=== PATIENT | male | born 1960 | race Hispanic/Latino ===

== ENCOUNTER 2017-11-06 16:29 | Emergency (ER) | payer MEDICARE ==
[2017-11-06] MEDS ORDERED: Sodium Chloride 0.9% 1,000 ML IV STA ×2 (16:58→20:18)
--- NOTE | 2017-11-06 17:31 | ED PDOC ---
Arrival/HPI - General Chief Complaint: Palpitations Time Seen by Provider: 11/06/17 16:36 Historian: Patient - History of Present Illness Narrative History of Present Illness (Text): 11/06/17 17:05 A 57 year old male, whose past medical history includes multiple sclerosis and hypertension, presents to the emergency department complaining of fluttering in chest x 3 days, 10x per day. Patient has had stress test performed 08/09/2017, which showed essentially normal SPECT myocardial perfusion study; fixed inferior defect is most likely due to diaphragmatic attenuation; normal gated wall motion and thickening of the left ventricle. Patient denies any associated shortness of breath, dyspnea on exertion, diaphoresis, chest pain, nausea, vomiting, or any other complaints. Patient visit on 11/03/2017 to [place] [facility] for similar complaint, where Troponin and Chest X-ray negative, with positive diagnosis with dehydration. PMD: Dr. Unruly Young Past Medical History - Provider Review Nursing Documentation Reviewed: Yes - Infectious Disease Hx of Infectious Diseases: None - Cardiac Hx Cardiac Disorders: Yes Hx Hypertension: Yes - Pulmonary Hx Respiratory Disorders: No - Neurological Hx Neurological Disorder: Yes Hx Multiple Sclerosis: Yes - HEENT Hx HEENT Disorder: No - Renal Hx Renal Disorder: No - Endocrine/Metabolic Hx Endocrine Disorders: No - Hematological/Oncological Hx Blood Disorders: No - Integumentary Hx Dermatological Disorder: No - Musculoskeletal/Rheumatological Hx Musculoskeletal Disorders: No Other/Comment: multiple sclerosis - Gastrointestinal Hx Gastrointestinal Disorders: No - Genitourinary/Gynecological Hx Genitourinary Disorders: No - Psychiatric Hx Psychophysiologic Disorder: No Hx Substance Use: No - Surgical History Other/Comment: spinal fusion - Anesthesia Hx Anesthesia Reactions: No Family/Social History - Physician Review Nursing Documentation Reviewed: Yes Family/Social History: No Known Family HX Smoking Status: Never Smoked Hx Alcohol Use: No Hx Substance Use: No Allergies/Home Meds Allergies/Adverse Reactions: Allergies Penicillins Allergy (Verified 11/06/17 16:50) RASH strawberry Allergy (Verified 11/06/17 16:50) RASH Home Medications: Home Meds Medication Instructions Recorded Confirmed Gabapentin [Neurontin] 300 mg PO QID 09/08/15 11/06/17 Telmisartan/Hydrochlorothiazid 1 tab PO DAILY 09/08/15 11/06/17 [Micardis Hct 25 mg-80 mg] Aspirin [Ecotrin] 81 mg PO DAILY 11/06/17 11/06/17 Baclofen [Lioresal] 10 mg PO TID 11/06/17 11/06/17 Ocrelizumab [Ocrevus] 0 mg IV 11/06/17 Review of Systems - Physician Review All systems were reviewed & negative as marked: Yes - Review of Systems Respiratory: absent: SOB Cardiovascular: absent: Chest Pain (however is experiencing fluttering in chest) , BISWAS Gastrointestinal: absent: Nausea, Vomiting Endocrine: absent: Diaphoresis Physical Exam Vital Signs Reviewed: Yes Vital Signs Temp Pulse Resp BP Pulse Ox 11/06/17 22:01 98.5 F 108 H 16 168/99 H 100 11/06/17 21:30 98.5 F 101 H 15 157/96 H 95 11/06/17 20:30 98.5 F 104 H 18 139/98 H 96 11/06/17 17:34 98.7 F 118 H 18 141/99 H 99 11/06/17 16:42 98.7 F 101 H 20 161/103 H 100 11/06/17 16:38 98.7 F 96 H 20 161/103 H 100 Temperature: Afebrile Blood Pressure: Hypertensive Pulse: Regular Respiratory Rate: Normal Appearance: Positive for: Well-Appearing Pain Distress: None Mental Status: Positive for: Alert and Oriented X 3 - Systems Exam Head: Present: Atraumatic, Normocephalic Pupils: Present: PERRL Extroacular Muscles: Present: EOMI Conjunctiva: Present: Normal Mouth: Present: Moist Mucous Membranes Neck: Present: Normal Range of Motion Respiratory/Chest: Present: Clear to Auscultation, Good Air Exchange. No: Respiratory Distress, Accessory Muscle Use Cardiovascular: Present: Regular Rate and Rhythm, Normal S1, S2. No: Murmurs Abdomen: Present: Normal Bowel Sounds. No: Tenderness, Distention, Peritoneal Signs Back: Present: Normal Inspection Upper Extremity: Present: Normal Inspection. No: Cyanosis, Edema Lower Extremity: Present: Normal Inspection, Other (right foot droop). No: Edema Neurological: Present: GCS=15, CN II-XII Intact, Speech Normal Skin: Present: Warm, Dry, Normal Color. No: Rashes Psychiatric: Present: Alert, Oriented x 3, Normal Insight, Normal Concentration Medical Decision Making ED Course and Treatment: 11/06/17 17:09 Impression: 57 year old male with fluttering in chest. Physical examination is unremarkable. Plan: -- EKG -- Chest X-ray -- Labs -- IV Fluids -- Nasal Cannula O2 -- Urinalysis -- Reassess and disposition Progress Notes: EKG: Ordered, reviewed, and independently interpreted the EKG. Rate : 106 BPM Rhythm : Sinus tachycardia Interpretation : Occasional PVC. Comparison : No previous EKG for comparison. 11/06/2017 18:17 Chest X-ray IMPRESSION: No active disease. No significant interval change compared to the prior examination(s). Dictator: Stefan Macias MD 11/06/17 21:52 repeat EKG : st @ [address]-t- segments, no arrythmogenic intervals , qtc: 461 mS , no more pvc's visualized. 11/06/17 21:57 workup (+) hypomagnesemia.which was repleted, and pt. 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 - Lab Interpretations Lab Results: 11/06/17 17:09 11/06/17 17:09 Lab Results 11/06/17 18:56: Urine Opiates Screen Negative, Urine Methadone Screen Negative, Ur Barbiturates Screen Negative, Ur Phencyclidine Scrn Negative, Ur Amphetamines Screen Negative, U Benzodiazepines Scrn Negative, U Oth Cocaine Metabols Negative, U Cannabinoids Screen Negative 11/06/17 17:52: Urine Color Yellow, Urine Appearance Clear, Urine pH 6.0, Ur Specific [place] 1.020, Urine Protein Negative, Urine Glucose (UA) Negative, Urine Ketones Negative, Urine Blood Trace-lysed H, Urine Nitrate Negative, Urine Bilirubin Negative, Urine Urobilinogen 0.2, Ur Leukocyte Esterase Negative , Urine RBC 0 - 2, Urine WBC Negative 11/06/17 17:15: Magnesium 1.5 L 11/06/17 17:09: Thyroxine (T4) 7.3, T3 Uptake 35.8, TSH 3rd Generation 1.45 11/06/17 17:09: Sodium 137, Potassium 4.5, Chloride 97 L, Carbon Dioxide 27, Anion Gap 17, BUN 27 H, Creatinine 1.0, Est GFR ( Amer) > 60, Est GFR ( Non-Af Amer) > 60, Random Glucose 124 H, Calcium 10.2, Total Bilirubin 0.9, AST 85 H, ALT 59 H, Alkaline Phosphatase 73, Lactate Dehydrogenase 559, Total Creatine Kinase 315 H, CK-MB (CK-2) 6.5 H, CK-MB (CK-2) % 2.1 L, Troponin I < 0.01, Total Protein 8.2, Albumin 4.8, Globulin 3.3, Albumin/Globulin Ratio 1.5 11/06/17 17:09: PT 10.9, INR 0.96, APTT 30.3 11/06/17 17:09: WBC 7.8 D, RBC 4.33, Hgb 13.7 L, Hct 39.9 L, MCV 92.1, MCH 31.6 , MCHC 34.3, RDW 12.5, Plt Count 231, MPV 9.7, Gran % 79.7 H, Lymph % (Auto) 10.5 L, Bibb % (Auto) 9.3 H, Eos % (Auto) 0.4 L, Baso % (Auto) 0.1, Gran # 6.24 , Lymph # (Auto) 0.8 L, Bibb # (Auto) 0.7 H, Eos # (Auto) 0.0, Baso # (Auto) 0.01 I have reviewed the lab results: Yes - RAD Interpretation Radiology Orders: 11/06/17 16:52 CHEST PORTABLE [RAD] Stat - Medication Orders Current Medication Orders: Discontinued Medications Sodium Chloride (Sodium Chloride 0.9%) 1,000 mls @ 999 mls/hr IV .Q1H1M STA Stop: 11/06/17 17:58 Last Admin: 11/06/17 17:42 Dose: 999 mls/hr eMAR Start Stop Document 11/06/17 17:42 OCS (Rec: 11/06/17 17:43 OCS [id number]) Intravenous Solution Start Date 11/06/17 Start Time 17:43 End Date 11/06/17 End time 18:44 Total Infusion Time 61 Sodium Chloride (Sodium Chloride 0.9%) 1,000 mls @ 999 mls/hr IV .Q1H1M STA Stop: 11/06/17 21:18 Last Admin: 11/06/17 20:31 Dose: 999 mls/hr eMAR Start Stop Document 11/06/17 20:31 OCS (Rec: 11/06/17 20:31 OCS [id number]) Intravenous Solution Start Date 11/06/17 Start Time 20:31 End Date 11/06/17 End time 21:32 Total Infusion Time 61 Magnesium Sulfate 2 gm/ Sodium (Chloride) 104 mls @ 102 mls/hr IVPB ONCE ONE Stop: 11/06/17 22:06 Last Admin: 11/06/17 21:16 Dose: 102 mls/hr eMAR Start Stop Document 11/06/17 21:16 OCS (Rec: 11/06/17 21:16 OCS [id number]) Intravenous Solution Start Date 11/06/17 Start Time 21:16 End Date 11/06/17 End time 22:18 Total Infusion Time 62 - Scribe Statement The provider has reviewed the documentation as recorded by the Kinza Still Provider Scribe Attestation: All medical record entries made by the Scribe were at my direction and personally dictated by me. I have reviewed the chart and agree that the record accurately reflects my personal performance of the history, physical exam, medical decision making, and the department course for this patient. I have also personally directed, reviewed, and agree with the discharge instructions and disposition. Disposition/Present on Arrival - Present on Arrival Any Indicators Present on Arrival: No History of DVT/PE: No History of Uncontrolled Diabetes: No Urinary Catheter: No History of Decub. Ulcer: No History Surgical Site Infection Following: None - Disposition Have Diagnosis and Disposition been Completed?: Yes Diagnosis: Palpitations, Hypomagnesemia Disposition: OTHER INSTITUTION Disposition Time: 21:59 Patient Plan: Discharge Condition: IMPROVED Discharge Instructions (ExitCare): Low Magnesium Level (DC), Palpitations (DC) Print Language: FINNISH Additional Instructions: Please eat more dark green vegetables such as spinach/kale/arugala to supplemen tyour magnesium. Drink at least 3 L of water daily to combat dehydration . Please follow up with your rubber tire curer as scheduled , and include infor him of today's visit, as he might choose to conduct a holter monitry evaluation as well to investigate these palpitations if they are continuing. . Referrals: Unruly Young MD [Primary Care Provider] - Follow up with primary Forms: [employer] (Thai)
[2017-11-06 17:32] LABS: BASO # 0.01 K/mm3 (0.0-2.0); BASO % 0.1 % (0.0-3.0); EOS % 0.4 % (1.5-5.0); GRAN # 6.24 (1.4-6.5); GRAN % 79.7 % (50.0-68.0); HEMOGLOBIN 13.7 g/dL (14.0-18.0); LYMPH # 0.8 (1.2-3.4); LYMPH % 10.5 % (22.0-35.0); MEAN CELL VOLUME 92.1 fl (80.0-105.0); MEAN CORPUSCULAR HEMOGLOBIN 31.6 pg (25.0-35.0); MEAN CORPUSCULAR HGB CONC 34.3 g/dl (31.0-37.0); MEAN PLATELET VOLUME 9.7 fl (7.0-11.0); MONO # 0.7 (0.1-0.6); MONO % 9.3 % (1.0-6.0); RBC 4.33 10^6/uL (3.5-6.1); RED CELL DISTRIBUTION WIDTH 12.5 % (11.5-14.5); WHITE BLOOD COUNT 7.8 10^3/ul (4.5-11.0)
[2017-11-06 17:33] LABS: ALB/GLOB RATIO 1.5 (1.1-1.8); ALBUMIN 4.8 g/dL (3.0-4.8); ALT/SGPT 59 U/L (7-56); AST/SGOT 85 U/L (17-59); BLOOD UREA NITROGEN 27 mg/dL (7-21); CALCIUM 10.2 mg/dL (8.4-10.5); GFR AFRICAN-AMERICAN > 60; GFR NON-AFRICAN AMERICAN > 60
[2017-11-06 17:36] LABS: INR 0.96 (0.93-1.08); PARTIAL THROMBOPLASTIN TIME 30.3 Seconds (25.1-36.5); PROTHROMBIN TIME 10.9 SECONDS (9.4-12.5)
[2017-11-06 17:45] LABS: TROPONIN I < 0.01 ng/mL
[2017-11-06 17:50] LABS: T3 UPTAKE 35.8 % (23.0-41.0); T4 7.3 ug/dL (5.5-11.0)
[2017-11-06 18:04] LABS: CK MB% 2.1 % (2.5-3.0); CK-MB 6.5 ng/mL (0.0-3.6)
[2017-11-06 18:18] LABS: URINE BILIRUBIN NEGATIVE (NEGATIVE); URINE BLOOD TRACE-LYSED (NEGATIVE); URINE GLUCOSE (UA) NEGATIVE (NEGATIVE); URINE LEUKOCYTE ESTERASE NEGATIVE Leu/uL (NEGATIVE); URINE PROTEIN NEGATIVE mg/dL (<30 mg/dL); URINE UROBILINOGEN 0.2 E.U./dL (<1 E.U./dL)
--- NOTE | 2017-11-06 18:19 | RAD ---
HISTORY: palpitations COMPARISON: 09/08/2015 FINDINGS: LUNGS: No active pulmonary disease. PLEURA: No significant pleural effusion identified, no pneumothorax apparent. CARDIOVASCULAR: No radiographic findings to suggest acute or significant cardiovascular disease. OSSEOUS STRUCTURES: No significant abnormalities. VISUALIZED UPPER ABDOMEN: Normal. OTHER FINDINGS: None. IMPRESSION: No active disease. No significant interval change compared to the prior examination(s).
[2017-11-06 18:21] LABS: URINE APPEARANCE CLEAR (CLEAR); URINE COLOR YELLOW (YELLOW)
[2017-11-06 18:23] LABS: URINE RBC 0 - 2 /hpf (0-2); URINE WBC NEGATIVE /hpf (0-6)
[2017-11-06 20:05] LABS: BARBITURATES, UR NEGATIVE (NEGATIVE); BENZODIAZEPINES, UR NEGATIVE (NEGATIVE); OPIATES, UR NEGATIVE (NEGATIVE); PHENCYCLIDINE, UR NEGATIVE (NEGATIVE)
[2017-11-06] MEDS ORDERED: Magnesium Sulfate 2 GM in Sodium Chloride 0.9% 100 ML IVPB ONE (21:05)
[2017-11-06 23:02] VITALS: TEMP 98.5
[2017-11-06 23:03] VITALS: BP 168/99; PULSE 108; RESP 16; O2SAT 100
--- NOTE | 2017-11-07 10:30 | CARD ---
APPROVED REPORT EKG Measurement Heart [id number] <Conclusion> Sinus tachycardia Left axis deviation Anterior infarct, age undetermined Abnormal ECG
--- NOTE | 2017-11-07 10:48 | CARD ---
APPROVED REPORT EKG Measurement Heart [id number] <Conclusion> Sinus tachycardia with fusion complexes Inferior infarct, age undetermined Possible Anterior infarct, age undetermined Abnormal ECG
== END 2017-11-06 22:33 | disposition designated cancer center or children's hospital (05) ==
LOC: ED 16:29
DX: R00.2 Palpitations (principal); E83.42 Hypomagnesemia; I10 Essential (primary) hypertension; G35 Multiple sclerosis
CPT/HCPCS: 71045; 80053; 81001; 82550; 82553; 83615; 83735; 84436; 84443; 84479; 84484; 85025; 85610; 85730; 93005; 96361; 96365; 99285; G0480; J3475; J7040